=== PATIENT | female | born 1940 | race Asian ===

== ENCOUNTER 2023-08-23 17:18 | Emergency (ER) | payer OTHER, MEDICARE ==
[~2023-08-23] VITALS: Ht 147.3 cm; Wt 72.7 kg
[2023-08-23 17:20] VITALS: TEMP 98.3
[2023-08-23] MEDS ORDERED: LOSA-381 PO (17:26)
[2023-08-23] MEDS ORDERED: METF-1211 PO (17:26)
[2023-08-23] MEDS ORDERED: ASPI-1450 PO (17:26)
[2023-08-23] MEDS ORDERED: MELO-381 PO (17:26)
[2023-08-23 18:55] LABS: EOSINOPHILS % (AUTO) 4.5 % (1.0-6.0); HEMOGLOBIN 13.8 g/dL (12.0-16.0); LYMPHOCYTES # (AUTO) 2.3 K/uL (1.0-4.8); LYMPHOCYTES % (AUTO) 34.4 % (22.0-44.0); MEAN CORPUSCULAR HEMOGLOBIN 30.7 pg (26.0-34.0); MEAN CORPUSCULAR VOLUME 93 fL (80-100); MONOCYTES # (AUTO) 0.6 K/uL (0.1-1.0); NEUTROPHILS # (AUTO) 3.4 K/uL (1.8-7.7); NEUTROPHILS % (AUTO) 51.1 % (40.0-70.0); PLATELET COUNT (AUTO) 175 K/uL (150-450); RED BLOOD CELL COUNT(AUTO) 4.51 MIL/uL (4.00-5.20); RED CELL DISTRIBUTION WIDTH 13.7 % (11.5-14.5); WHITE BLOOD COUNT (AUTO) 6.7 K/uL (4.5-11.0)
[2023-08-23 19:16] LABS: ANION GAP 10 mmol/L (8-16); CALCIUM, TOTAL 9.2 mg/dL (8.8-10.5); CARBON DIOXIDE 29 mmol/L (22-29); CHLORIDE 105 mmol/L (98-107); CREATININE 0.87 mg/dL (0.60-1.30); GLOMERULAR FILTR. RATE CALC > 60 mL/min (>60); GLUCOSE,RANDOM 127 mg/dL (70-110); POTASSIUM 4.4 mmol/L (3.5-5.1); SODIUM SERUM 144 mmol/L (136-145); UREA NITROGEN, BLOOD 12 mg/dL (7-18)
[2023-08-23 19:21] LABS: ALANINE AMINOTRANSFERASE 24 U/L (12-78); ALBUMIN 4.4 g/dL (3.4-5.0); ALKALINE PHOSPHATASE 79 U/L (46-116); ASPARTATE AMINOTRANSFERASE 19 U/L (15-37); BILIRUBIN,TOTAL 0.3 mg/dL (0.1-1.0); LIPASE 44 U/L (16-77); TOTAL PROTEIN, SERUM 8.3 g/dL (6.4-8.2)
[2023-08-23 19:23] LABS: TROPONIN I-HIGH SENSITIVITY 17 ng/L (<51)
[2023-08-23] MEDS ORDERED: METH-659 PO (23:55)
[2023-08-24] MEDS ORDERED: KETOROLAC TROMETHAMINE 30 MG/ML VIAL IM ONE
[2023-08-24 00:40] VITALS: BP 182/107; PULSE 60; RESP 16
== END 2023-08-23 23:55 | disposition home or self-care (01) ==
LOC: EMS 17:21
DX: S46.912A Strain of unspecified muscle, fascia and tendon at shoulder and upper arm level, left arm, initial encounter (principal); E11.9 Type 2 diabetes mellitus without complications; E78.00 Pure hypercholesterolemia, unspecified; I10 Essential (primary) hypertension; X58.XXXA Exposure to other specified factors, initial encounter; Y93.89 Activity, other specified; Y92.89 Other specified places as the place of occurrence of the external cause; Y99.8 Other external cause status
CPT/HCPCS: 80053; 82962; 83690; 84484; 85025; 93005; 96372; 99284; J1885

== ENCOUNTER 2024-06-06 02:59 | Emergency (ER) | payer MEDICARE, OTHER ==
[~2024-06-06 02:59] MED LIST: ASPI-1450 PO; LOSA-381 PO; MELO-107 PO; METF-1211 PO; METH-659 PO
[2024-06-06 03:15] VITALS: BP 130/80; PULSE 36
[2024-06-06] MEDS: ROCURONIUM BROMIDE 10 MG/ML 5 ML VIAL IVP ONE (03:15)
[2024-06-06] MEDS: ETOMIDATE 2 MG/ML 10 ML VIAL IVP ONE (05:14)
== END 2024-06-06 06:33 ==
LOC: EMS 02:59
DX: I46.9 Cardiac arrest, cause unspecified (principal); E11.9 Type 2 diabetes mellitus without complications; E78.00 Pure hypercholesterolemia, unspecified; I10 Essential (primary) hypertension
CPT/HCPCS: 31500; 99152; 99285; Z7502